=== PATIENT | male | born 1985 | race Caucasian/White ===

== ENCOUNTER 2018-10-22 11:44 | Emergency (ER) | payer SELFPAY ==
[2018-10-22] MEDS ORDERED: IBUPROFEN 800 MG TABLET PO ONE (12:30)
--- NOTE | 2018-10-22 12:33 | ER Document Report ---
HPI - HPI Patient complains to provider of: groin pain Time Seen by Provider: 10/22/18 12:27 Onset: Other Onset/Duration: Persistent Quality of pain: Achy Severity: Moderate Pain Level: 3 Context: Patient presents emergency department with right-sided groin pain. Reports few days ago he was doing back flips off a boat in [place]. Possibly pulled something. Reports increased pain when he lifts anything or walk. Denies history of hernias. Denies pain with void denies testicular pain and swelling. No other complaints such as fever vomiting diarrhea. Associated Symptoms: None Exacerbated by: Movement, Other - lifting Relieved by: Denies Similar symptoms previously: No Recently seen / treated by doctor: No Past Medical History - General Information source: Patient - Social History Smoking Status: Unknown if Ever Smoked Cigarette use (# per day): No Frequency of alcohol use: None Drug Abuse: None Family History: None Patient has suicidal ideation: No Patient has homicidal ideation: No - Medical History Medical History: Negative Renal/ Medical History: Denies: Hx Peritoneal Dialysis Past Surgical History: Reports: Hx Appendectomy Vertical Provider Document - CONSTITUTIONAL Agree With Documented VS: Yes Exam Limitations: No Limitations General Appearance: WD/WN, No Apparent Distress - INFECTION CONTROL TRAVEL OUTSIDE OF THE [place] IN LAST 30 DAYS: No - HEENT HEENT: Atraumatic, Normocephalic - NECK Neck: Supple - RESPIRATORY Respiratory: No Respiratory Distress - CARDIOVASCULAR Cardiovascular: Regular Rate - GI/ABDOMEN Gastrointestinal: Abdomen Soft, Abdomen Non-Tender - REPRODUCTIVE Notes: Right inguinal area tender to palpation slight swelling - MUSCULOSKELETAL/EXTREMETIES Musculoskeletal/Extremeties: MICHAEL SHANKS - NEURO Level of Consciousness: Awake, Alert, Appropriate Motor/Sensory: No Motor Deficit - DERM Integumentary: Warm, Dry Course - Re-evaluation Re-evalutation: 10/22/18 12:33 Patient instructed on pending ultrasound Motrin ordered for discomfort. 10/22/18 15:52 Patient presented with ultrasound reports. Discussed inflammation of antibiotics. He again verbalized no testicular pain no problems voiding no testicular pain. He was instructed to follow-up with the primary care provider referral to urology as indicated. He was given a copy of his ultrasound report. Dictation of this chart was performed using voice recognition software; therefore, there may be some unintended grammatical errors. - Vital Signs Vital signs: Temp Pulse Resp BP Pulse Ox 98.1 F 74 16 105/78 100 10/22/18 11:53 10/22/18 11:53 10/22/18 11:53 10/22/18 11:53 10/22/18 11:53 - Diagnostic Test Radiology reviewed: Image reviewed, Reports reviewed - EXAM DESCRIPTION: U/S SCROTUM W/DOPPLER COMPLETED DATE/TIME: 10/22/2018 3:07 pm REASON FOR STUDY: groin pain, possible inguinal hernia right side COMPARISON: None. TECHNIQUE: Static and realtime hagan scale imaging of the scrotum and testes. Selected color Doppler and spectral images recorded to document blood flow. LIMITATIONS: None. FINDINGS: RIGHT: TESTICLE: Normal size, 3.8 x 3.3 x 2.2 cm. Normal echotexture. Normal blood flow. No mass. EPIDIDYMIS: Normal. 14 mm. HYDROCELE OR VARICOCELE: No. HERNIA OR EXTRA-TESTICULAR MASS: There is a tubular structure that is seen from the right pubic area to the right scrotum. OTHER: No other significant finding. LEFT: TESTICLE: Normal size, 4.1 x 2.8 x 2.3 cm. Normal echotexture. Normal blood flow. No mass. EPIDIDYMIS: Normal. 14 mm. HYDROCELE OR VARICOCELE: No. HERNIA OR EXTRA-TESTICULAR MASS: No. OTHER: No other significant finding. IMPRESSION: Normal testes. Normal epididymis. There is a tubular structure on the right possibly representing an inflamed vas deferens Discharge - Discharge Clinical Impression: groin pain Condition: Stable Disposition: HOME, SELF-CARE Instructions: Use of [id number] Ibuprofen ([facility]) Additional Instructions: *You have been evaluated for groin pain *The US was negative for a hernia *Take ibuprofen as indicated for pain *Rest do not lift heavy items until pain has resolved *Follow up with a primary care provider within one week for recheck and referral to urology as indicated. Please take the copy of the US report with you *Return to ED for worsening condition, changes, needs Forms: Return to Work
--- NOTE | 2018-10-22 15:25 | RADIOLOGY REPORT (SQ) ---
EXAM DESCRIPTION: U/S SCROTUM W/DOPPLER COMPLETED DATE/TIME: 10/22/2018 3:07 pm REASON FOR STUDY: groin pain, possible inguinal hernia right side COMPARISON: None. TECHNIQUE: Static and realtime hagan scale imaging of the scrotum and testes. Selected color Doppler and spectral images recorded to document blood flow. LIMITATIONS: None. FINDINGS: RIGHT: TESTICLE: Normal size, 3.8 x 3.3 x 2.2 cm. Normal echotexture. Normal blood flow. No mass. EPIDIDYMIS: Normal. 14 mm. HYDROCELE OR VARICOCELE: No. HERNIA OR EXTRA-TESTICULAR MASS: There is a tubular structure that is seen from the right pubic area to the right scrotum. OTHER: No other significant finding. LEFT: TESTICLE: Normal size, 4.1 x 2.8 x 2.3 cm. Normal echotexture. Normal blood flow. No mass. EPIDIDYMIS: Normal. 14 mm. HYDROCELE OR VARICOCELE: No. HERNIA OR EXTRA-TESTICULAR MASS: No. OTHER: No other significant finding. IMPRESSION: Normal testes. Normal epididymis. There is a tubular structure on the right possibly r epresenting an inflamed vas deferens. TECHNICAL DOCUMENTATION: JOB ID: [id number] Location- All Rights Reserved Reading location - IP/workstation name: [email or web address]
[2018-10-22 15:51] VITALS: BP 120/80
== END 2018-10-22 15:55 | disposition home or self-care (01) ==
LOC: ER 11:44
DX: R10.30 Lower abdominal pain, unspecified (principal)
CPT/HCPCS: 76870; 93976; 99283